=== PATIENT | female | born 1985 | race Caucasian/White ===

== ENCOUNTER 2017-11-11 14:05 | Emergency (ER) | payer MEDICAID, OTHER ==
[~2017-11-11] VITALS: Ht 162.6 cm; Wt 106.7 kg
[~2017-11-11 14:05] MED LIST: FERR-252 PO; FOLI1TAB19 PO; IBUP-974 PO; PREN-385 PO
[2017-11-11 15:13] VITALS: BP 129/71
[2017-11-11] MEDS ORDERED: DICYCLOMINE HCL LIQUID 10 MG/5 ML UDC PO ONE (16:30)
[2017-11-11] MEDS ORDERED: ALUMINUM HYD/MAG/SIMETHICONE 30 ML UDC PO ONE (16:30)
[2017-11-11] MEDS ORDERED: LIDOCAINE VISCOUS 2% 20 ML UDC PO ONE (16:30)
--- NOTE | 2017-11-11 17:23 | NUR ---
PATIENT PRESENTS TO ED WITH RIGHT HIP OPEN WOUND DRAINING--BURNING PAIN . PT STATES . DENIES N/V/D; SKIN IS PINK/WARM/DRY; AAOX4 WITH EVEN AND STEADY GAIT; LUNGS CLEAR BL; HR EVEN AND REGULAR; PT DENIES ANY FEVER, CP, SOB, OR COUGH AT THIS TIME; PATIENT STATES PAIN OF 060 AT THIS TIME; VSS; PATIENT POSITIONED FOR COMFORT; HOB ELEVATED; BEDRAILS UP X2; BED DOWN. ER MD MADE AWARE OF PT STATUS.
[2017-11-11] MEDS ORDERED: BACITRACIN OINT 500 UNITS/GM PKT TP ONE (17:32)
[2017-11-11] MEDS ORDERED: NEOMYCIN/POLYMYXIN/BACITRACIN 0.9 GM/1 PKT TP ONE (17:35)
--- NOTE | 2017-11-11 17:42 | NUR ---
AREA CLEANED WITH BETADINE---BACITRACIN APPLIED DIRECTED AND DRESSING PLACED.
[2017-11-11 17:44] VITALS: BP 131/77
--- NOTE | 2017-11-11 17:45 | NUR ---
Patient discharged with v/s stable. Written and verbal after care instructions given and explained. Patient alert, oriented and verbalized understanding of instructions. Ambulatory with steady gait. All questions addressed prior to discharge. ID band removed. Patient advised to follow up with PMD. Rx of KEFLEX/ MOTRIN given. Patient educated on indication of medication including possible reaction and side effects. Opportunity to ask questions provided and answered.
== END 2017-11-11 17:45 | disposition home or self-care (01) ==
LOC: MED 14:05
DX: L03.115 Cellulitis of right lower limb (principal); R05 Cough; J45.909 Unspecified asthma, uncomplicated
CPT/HCPCS: 16020; 71045; 99284

== ENCOUNTER 2018-10-17 22:58 | Emergency (ER) | payer OTHER ==
[~2018-10-17] VITALS: Ht 160 cm; Wt 90.7 kg
[2018-10-18 01:15] VITALS: BP 126/57
== END 2018-10-18 01:30 | disposition home or self-care (01) ==
LOC: MED 22:58
DX: J02.9 Acute pharyngitis, unspecified (principal); R05 Cough; R52 Pain, unspecified; J45.909 Unspecified asthma, uncomplicated; Z79.1 Long term (current) use of non-steroidal anti-inflammatories (NSAID); Z79.899 Other long term (current) drug therapy; Z98.890 Other specified postprocedural states
CPT/HCPCS: 99283

== ENCOUNTER 2019-12-04 15:42 | Observation (INO) | payer MEDICAID ==
[~2019-12-04] VITALS: Ht 157.5 cm; Wt 115.7 kg
[2019-12-04 16:48] LABS: APPEARANCE,URINE SL CLOUDY (CLEAR); BILIRUBIN,URINE NEGATIVE (NEGATIVE); BLOOD, URINE NEGATIVE (NEGATIVE); COLOR,URINE YELLOW (YELLOW); LEUKOCYTE ESTERASE ,URINE 1+ (NEGATIVE); NITRITE, URINE NEGATIVE (NEGATIVE); UGLUCOSE NEGATIVE (NEGATIVE)
[2019-12-04 16:49] VITALS: BP 123/57
[2019-12-04] MEDS ORDERED: INFLUENZA VACCINE QUAD 0.5 ML SYR IMVAC PRN (16:50)
[2019-12-04 16:59] LABS: BARBITURATE, URINE NEGATIVE ng/ml (NEG <=200); BENZODIAZEPINE, URINE NEGATIVE ng/mL (NEG <=200); CANNABINOID, URINE NEGATIVE ng/mL (NEG <=50); COCAINE, URINE NEGATIVE ng/mL (NEG <=300); OPIATE, URINE NEGATIVE ng/mL (NEG <=2000); PHENCYCLIDINE SCREEN,URINE NEGATIVE ng/mL (NEG <=25)
[2019-12-04 23:00] LABS: CALCIUM OXALATE CRYSTALS,UR 0-10 /HPF (None Seen); RBC,URINE 0-5 /HPF (0-5); WBC,URINE 0-5 /HPF (0-5)
== END 2019-12-04 17:30 | disposition home or self-care (01) ==
LOC: MLD 15:42
PROVIDERS: ADMIT Obstetrics & Gynecology; ATTEND Obstetrics & Gynecology
DX: O36.8130 Decreased fetal movements, third trimester, not applicable or unspecified (principal); O09.523 Supervision of elderly multigravida, third trimester; O26.893 Other specified pregnancy related conditions, third trimester; R10.11 Right upper quadrant pain; O99.513 Diseases of the respiratory system complicating pregnancy, third trimester; J45.909 Unspecified asthma, uncomplicated; Z3A.28 28 weeks gestation of pregnancy
CPT/HCPCS: 59025; 76819; 80305; 81001; 87086; G0378; Q0092